=== PATIENT | female | born 1995 | race African-American/Black ===

== ENCOUNTER 2021-10-31 12:59 | Emergency (ER) | payer MEDICAID ==
[~2021-10-31] VITALS: Ht 167.6 cm; Wt 89.0 kg
[2021-10-31 16:54] LABS: CLARITY URINE CLEAR (CLEAR); COLOR URINE YELLOW (YELLOW); KETONES URINE NEGATIVE (NEGATIVE); LEUKOCYTE ESTERASE URINE 1+ (NEGATIVE); NITRITE URINE NEGATIVE (NEGATIVE); OCCULT BLOOD URINE 3+ (NEGATIVE); PROTEIN URINE NEGATIVE (NEGATIVE); SPECIFIC GRAVITY URINE 1.017 (1.005-1.030)
[2021-10-31] MEDS ORDERED: NAPR-681 PO (17:10)
[2021-10-31] MEDS ORDERED: SULF1TAB48 PO (17:10)
[2021-10-31 17:18] VITALS: BP 135/65
== END 2021-10-31 17:24 | disposition home or self-care (01) ==
LOC: ER 13:16
DX: N39.0 Urinary tract infection, site not specified (principal)
CPT/HCPCS: 81003; 99283